=== PATIENT | female | born 1955 | race Caucasian/White ===

== ENCOUNTER 2017-07-26 02:53 | Emergency (ER) | payer MEDICAID ==
[~2017-07-26] VITALS: Ht 165.1 cm; Wt 85.0 kg
[~2017-07-26 02:53] MED LIST: ACET-2119 PO; DIPH25CA83 PO; LISI-642 PO; METO25TA6 PO; ONDA4TAB6 PO
[2017-07-26] MEDS ORDERED: meclizine 12.5mg tablet PO ONE (03:10)
[2017-07-26] MEDS ORDERED: MECL-111 PO (03:11)
[2017-07-26 03:34] VITALS: BP 155/78
== END 2017-07-26 03:37 | disposition home or self-care (01) ==
LOC: ER 02:53
DX: R42 Dizziness and giddiness (principal); R11.0 Nausea; R20.0 Anesthesia of skin; I10 Essential (primary) hypertension; E11.9 Type 2 diabetes mellitus without complications; G89.29 Other chronic pain; Z88.0 Allergy status to penicillin; Z88.2 Allergy status to sulfonamides; Z88.5 Allergy status to narcotic agent
CPT/HCPCS: 99283; J8597

== ENCOUNTER 2018-03-06 19:29 | Emergency (ER) | payer MEDICAID ==
[~2018-03-06] VITALS: Ht 165.1 cm; Wt 90.0 kg
[~2018-03-06 19:29] MED LIST changes: +MECL-111 PO
[2018-03-06] MEDS ORDERED: acetaminophen 325mg tablet PO ONE (22:00)
[2018-03-06] MEDS ORDERED: dexamethasone sod phosphate 10mg/ml inj IM STA (22:00)
[2018-03-06] MEDS ORDERED: METH4TAB81 PO (22:35)
[2018-03-06 22:49] VITALS: BP 166/97
== END 2018-03-06 23:38 | disposition home or self-care (01) ==
LOC: ER 19:30
DX: M54.5 Low back pain (principal); I10 Essential (primary) hypertension; E11.9 Type 2 diabetes mellitus without complications; M19.90 Unspecified osteoarthritis, unspecified site; G89.29 Other chronic pain; Z98.890 Other specified postprocedural states; Z88.0 Allergy status to penicillin; Z88.2 Allergy status to sulfonamides; Z88.5 Allergy status to narcotic agent; Z88.8 Allergy status to other drugs, medicaments and biological substances; Z79.899 Other long term (current) drug therapy
CPT/HCPCS: 72100; 96372; 99284; J1100